=== PATIENT | female | born 1935 | race Caucasian/White ===

== ENCOUNTER 2018-03-28 18:44 | Emergency (ER) | payer OTHER ==
[~2018-03-28] VITALS: Ht 162.6 cm; Wt 74.8 kg
[~2018-03-28 18:44] MED LIST: BONIVA2.5 MG PO; JANUMET 50-1,1 UDTAB PO; TRICOR48 MG PO
[2018-03-28] MEDS ORDERED: COZAAR50 MG (18:58)
[2018-03-28] MEDS ORDERED: FORTAMET1000 MG (18:58)
[2018-03-28] MEDS ORDERED: VERAPAMIL HCL (18:58)
[2018-03-28] MEDS ORDERED: ZETIA10 MG (18:59)
[2018-03-28] MEDS ORDERED: SKELAXIN800 MG PO (19:26)
[2018-03-28] MEDS ORDERED: CELEBREX100 MG PO (19:26)
== END 2018-03-28 20:22 | disposition home or self-care (01) ==
LOC: ER 18:44
DX: M62.830 Muscle spasm of back (principal)

== ENCOUNTER 2024-12-23 18:21 | Emergency (ER) | payer OTHER ==
[~2024-12-23] VITALS: Ht 154.9 cm; Wt 79.8 kg
[~2024-12-23 18:21] MED LIST changes: +CELEBREX100 MG PO; +COZAAR50 MG; +FORTAMET1000 MG; +SKELAXIN800 MG PO; +VERAPAMIL HCL; +ZETIA10 MG
[2024-12-23] MEDS ORDERED: KETOROLAC TROMETHAMINE 60 MG VIAL IM STA (20:43)
[2024-12-23] MEDS ORDERED: CEFTRIAXONE SODIUM 1,000 MG VIAL IV STA (20:45)
[2024-12-23 21:12] LABS: HEMATOCRIT 38.5 % (36.0-45.00); HEMOGLOBIN 12.9 g/dL (12.0-15.00); MEAN CELL VOLUME 89.1 fL (80.00-100.00); MEAN CORPUSCULAR HEMOGLOBIN 29.9 pg (27.00-32.0); MEAN CORPUSCULAR HGB CONC 33.6 g/dl (32.0-36.0); PLATELET COUNT 303 K/uL (150-450); RED BLOOD COUNT 4.32 M/uL (4.00-6.00); RED CELL DISTRIBUTION WIDTH 14.4 % (11.5-14.5)
[2024-12-23 21:39] LABS: ALBUMIN 3.9 gm/dL (3.4-5.0); BILIRUBIN TOTAL 0.63 mg/dL (0.3-1.2); CALCIUM 9.5 mg/dL (8.5-10.1); CREATININE SERUM 0.61 mg/dL (0.55-1.02); GFR 92.56; POTASSIUM 4.79 mEq/L (3.5-5.1); TOTAL PROTEIN 7.9 gm/dL (6.4-8.2)
[2024-12-23 21:46] LABS: C-REACTIVE PROTEIN 3.58 MG/DL (0.00-0.29)
[2024-12-24] MEDS ORDERED: CLINDAMYCIN PHOSPHATE 150 MG/ML (900mg) IV STA (02:50)
[2024-12-24] MEDS ORDERED: PEPCID40 MG PO (02:57)
[2024-12-24] MEDS ORDERED: CLEOCIN HCL300 MG PO (02:57)
[2024-12-24] MEDS ORDERED: PROTONIX40 MG PO (02:57)
== END 2024-12-24 04:17 ==
LOC: ER 18:24
DX: L03.211 Cellulitis of face (principal); K04.7 Periapical abscess without sinus; I10 Essential (primary) hypertension; E11.9 Type 2 diabetes mellitus without complications; Z79.84 Long term (current) use of oral hypoglycemic drugs
CPT/HCPCS: 36415; 70487; Q9965